=== PATIENT | female | born 1930 | race Caucasian/White ===

== ENCOUNTER → 2016-12-12 | Outpatient (CLI) | payer MEDICARE, OTHER ==
[~2016-12-12] MED LIST: ASPI81 PO; CHLO25TA24 PO; ISOS60 PO; LORTA5 PO; LOSA50TA PO; NITR0.4S SL; OMEP20TA39 PO; POTA-243 PO; ROSU10 PO; TOPR100T15 PO
[2016-12-12 10:28] LABS: POTASSIUM 3.8 MEQ/L (3.5-5.1)
[2016-12-12 13:37] LABS: HEMATOCRIT 36.5 % (35.0-46.0); MEAN CELL VOLUME 87.1 FL (80.0-100.0); MEAN CORPUSCULAR HEMOGLOBIN 29.5 PG (27.0-34.0); MEAN CORPUSCULAR HGB CONC 33.9 % (32.0-36.0); PLATELET COUNT 175 TH/MM3 (150-450); RED CELL DISTRIBUTION WIDTH 15.1 % (11.6-17.2); REVIEW FLAG FINAL; WHITE BLOOD COUNT 4.4 TH/MM3 (4.0-11.0)
== END ==
LOC: PLAB 09:11
PROVIDERS: ATTEND Internal Medicine Interventional Cardiology
DX: R06.02 Shortness of breath (principal); I11.9 Hypertensive heart disease without heart failure; R06.00 Dyspnea, unspecified; I27.2 Other secondary pulmonary hypertension
CPT/HCPCS: 36415; 80048; 85027

== ENCOUNTER 2017-06-20 12:17 | Emergency (ER) | payer MEDICARE, OTHER ==
[~2017-06-20] VITALS: Ht 149.9 cm; Wt 63.3 kg
[2017-06-20 12:44] VITALS: BP 121/66; PULSE 67; RESP 16; TEMP 97.9; O2SAT 95
[2017-06-20] MEDS ORDERED: POTA10CA PO (13:57)
[2017-06-20] MEDS ORDERED: LOSA25TA PO (13:57)
[2017-06-20] MEDS ORDERED: CHLO25TA2 PO (13:57)
[2017-06-20] MEDS ORDERED: NITR0.4S SL (13:57)
[2017-06-20] MEDS ORDERED: ASPI325T PO (13:57)
[2017-06-20] MEDS ORDERED: METO50TA11 PO (13:57)
[2017-06-20] MEDS ORDERED: optiva (13:57)
[2017-06-20] MEDS ORDERED: ROSU10 PO (13:57)
[2017-06-20] MEDS ORDERED: OMEP20TA PO (13:57)
[2017-06-20] MEDS ORDERED: ISOS30TA3 PO (13:57)
--- NOTE | 2017-06-20 15:44 | RADRPT ---
EXAM DATE/TIME: 06/20/2017 14:57 [facility] COMPARISON: KNEE RIGHT COMPLETE (4VWS), June 17, 2015, 10:48. INDICATIONS : Right knee pain after falling today. MEDICAL HISTORY : None. SURGICAL HISTORY : None. ENCOUNTER: Initial ACUITY: 1 day PAIN SCORE: 6/10 LOCATION: Right anterior knee. FINDINGS: Diffuse osteopenia. Advanced lateral compartmental osteoarthritis with lateral joint space narrowing and osteophyte formation. Severity of findings is similar to prior examination of May 2015. Th e suprapatellar soft tissues are normal in thickness. CONCLUSION: No evidence of recent bony injury. Pepito Segovia MD on June 20, 2017 at 15:41 Board Certified Radiologist. This report was verified electronically.
--- NOTE | 2017-06-20 15:45 | RADRPT ---
EXAM DATE/TIME: 06/20/2017 14:57 [facility] COMPARISON: CHEST PA & LAT, May 20, 2014, 15:28. INDICATIONS : Left rib pain after falling today. MEDICAL HISTORY : None. SURGICAL HISTORY : None. ENCOUNTER: Initial ACUITY: 1 day PAIN SCORE: 8/10 LOCATION: Left chest FINDINGS: A single view of the chest demonstrates the lungs to be symmetrically aerated without evidence of mas s, infiltrate or effusion. The heart is normal size. Moderate tortuosity descending thoracic aorta. Retrocardiac opacity has similar features to prior chest x-ray in 2013 suggesting a moderately larg e hiatus hernia.. Mild scoliosis of the thoracolumbar spine convex towards the left. The visualized ribs are grossly intact.. CONCLUSION: The lungs are clear. No evidence of pneumothorax. Pepito Segovia MD on June 20, 2017 at 15:42 Board Certified Radiologist. This report was verified electronically.
--- NOTE | 2017-06-20 16:03 | PD ---
HPI . Fall Chief Complaint: Fall Time Seen by Provider: 14:08 Travel History International Travel<30 days: No Contact w/Intl Traveler<30days: No Traveled to known affect area: No History of Present Illness HPI Well-nourished, well-developed cheerful and smiling 86-year-old female presents to the emergency department for evaluation of right knee pain and left rib pain after falling at home today. Patient states she was walking through her laundry room without turning the light on so it was dark in her feet got caught on some clothes that were on the ground. Patient fell to the ground but in a controlled fashion and landed on her right knee but hit her left rib cage on furniture. She denies hitting her head or losing consciousness. The right knee is tender to palpation but no ecchymosis, erythema, edema or obvious deformity noted. The left chest wall is painful to palpation but there is no obvious deformity, ecchymosis, erythema or edema noted. Patient denies any other injuries during this fall. The only blood thinner the patient on is 325 mg of aspirin daily. PFSH Past Medical History Anemia: Yes Arthritis: Yes Blood Disorders: No Cancer: No Cardiac Catheterization: Yes Cardiovascular Problems: Yes (stents) High Cholesterol: Yes Chest Pain: No Coronary Artery Disease: Yes Endocrine: No Gastrointestinal Disorders: Yes GERD: Yes Genitourinary: Yes Hepatitis: Yes Hypertension: Yes Immune Disorder: No Implanted Vascular Access Dvce: No Musculoskeletal: Yes Neurologic: No Psychiatric: No Reproductive: No Respiratory: Yes Immunizations Current: Yes ?: Not Menopausal: Yes Past Surgical History Genitourinary Surgery: Yes (HEMORRAIDECTOMY) Joint Replacement: Yes (RT. HIP SURG 2007) Thoracic Surgery: Yes (FIBROID R BREAST) Other Surgery: Yes (HEMHHROID SURG 60 YRS AGO, CYST 40 YRS ADO TO RT. 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 Repeat every 5 minutes for a total of 3 DOSES or call 911 if NO relief. Losartan (Losartan Potassium) 25 Mg Tab 25 Mg PO DAILY Omeprazole 20 Mg Tab 20 Mg PO DAILY Review of Systems Except as stated in HPI: all other systems reviewed are Neg Physical Exam Narrative GENERAL: Well-nourished, well-developed pleasant 86-year-old female patient in no acute distress. Nontoxic appearing. SKIN: Focused skin assessment warm/dry. HEAD: Normocephalic. Atraumatic. NEUROLOGICAL: Awake and alert. Cranial nerves II through XII intact. Motor and sensory grossly within normal limits. Five out of 5 muscle strength in all muscle groups. Normal speech. EYES: Left pupil oval shaped (hx of cataract surgery). Right pupil round. No scleral icterus. No injection or drainage. NECK: Supple, trachea midline. No JVD or lymphadenopathy. CARDIOVASCULAR: Regular rate and rhythm without murmurs, gallops, or rubs. RESPIRATORY: Breath sounds equal bilaterally. No accessory muscle use. GASTROINTESTINAL: Abdomen soft, non-tender, nondistended. MUSCULOSKELETAL: Right knee tender to palpation. No obvious deformity, ecchymosis, erythema, cyanosis, or edema. BACK: Nontender without obvious deformity. No CVA tenderness. Data Data Last Documented VS Vital Signs Date Time Temp Pulse Resp B/P (MAP) Pulse Ox O2 Delivery O2 Flow Rate FiO2 06/20/17 12:44 97.9 67 16 121/66 (84) 95 Orders Orders Knee, Complete (4vws) (06/20/17 14:39) Ice/Cold Pack (06/20/17 14:39) Chest, Single Ap (06/20/17 14:39) Ketorolac Inj (Toradol Inj) (06/20/17 16:15) Orphenadrine Inj (Norflex Inj) (06/20/17 16:15) Ed Discharge Order (10/24/17 16:03) MDM Medical Decision Making Medical Screen Exam Complete: Yes Emergency Medical Condition: Yes Differential Diagnosis Differential diagnoses include but not limited to right knee contusion, fall, right knee sprain, rib fracture, rib contusion Narrative Course 86-year-old female patient presents emergency department for evaluation of right knee pain and left rib pain after falling today at home. Patient was walking through a dark laundry room and tripped on clothes that were on the ground. Patient denies hitting her head or losing consciousness. No focal neurological deficit noted. Right knee is tender to palpation but no signs of trauma such as obvious deformity, ecchymosis, erythema or cyanosis noted. Left rib cage is tender to palpation but there is no signs of trauma such as obvious deformities, ecchymosis, erythema or cyanosis noted. X-ray of the right knee and chest x-ray ordered and pending. Chest x-ray shows clear lungs and visualized ribs grossly intact. Right knee x-ray shows no evidence of a recent bony injury but diffuse osteopenia and advanced lateral compartment osteoarthritis. A right knee x-ray was compared with a previous x-ray from 2015 with similar findings. Patient will be given an IM injection of Norflex and Toradol and discharged home with instructions to follow-up with her primary care. Right knee will be Flavio wrapped. Diagnosis Primary Impression: Fall Qualified Codes: W19.XXXA - Unspecified fall, initial encounter Additional Impressions: Rib pain on left side Knee pain, right Qualified Codes: M25.561 - Pain in right knee Referrals: Primary Care Physician Patient Instructions: Fall Prevention for Older Adults (DC), General Instructions Additional Instructions: Please return to emergency department if your symptoms return or worsen. Follow up with your primary care provider. Rice therapy to right knee. Rest, ice, Flavio wrap when ambulatory and elevate when resting Scripts Naproxen Sodium (Naproxen Sodium) 220 Mg Tab 220 MG PO BID Y for Pain Management for 3 Days, #6 TAB 0 Refills Prov: Babita Edwards 06/20/17 Cyclobenzaprine (Flexeril) 5 Mg Tab 5 MG PO TID for Muscle Spasm for 3 Days, #90 TAB 0 Refills Prov: Babita Edwards 06/20/17 Disposition: DISCHARGE HOME Condition: Stable Babita Edwards Jun 20, 2017 16:03
[2017-06-20] MEDS ORDERED: ORPHENADRINE INJ 60 MG/2 ML AMP IM ONE (16:15)
[2017-06-20] MEDS ORDERED: KETOROLAC TROMETHAMINE 60 MG/2 ML (IM) VIAL IM ONE (16:15)
[2017-06-20] MEDS ORDERED: CYCL5TAB PO (16:21)
[2017-06-20] MEDS ORDERED: MEDI220T PO (16:21)
== END 2017-06-20 16:39 | disposition home or self-care (01) ==
LOC: PHEFT 12:17
DX: M25.561 Pain in right knee (principal); R07.81 Pleurodynia; W18.09XA Striking against other object with subsequent fall, initial encounter; Y93.01 Activity, walking, marching and hiking; Y92.008 Other place in unspecified non-institutional (private) residence as the place of occurrence of the external cause
CPT/HCPCS: 71010; 73564; 96372; 99284; J1885; J2360